=== PATIENT | male | born 1945 | race Hispanic/Latino ===

== ENCOUNTER 2023-10-11 08:21 | Day surgery (SDC) | payer MEDICARE ==
[2023-10-11] VITALS (16 sets, daily range): BP systolic 145–175; BP diastolic 83–95; PULSE 16–58; RESP 12–19
[~2023-10-11 08:21] MED LIST: AEC81 PO; LISI10TA24 PO; PREG150C47 PO; ROSU5TAB12 PO
[2023-10-11] MEDS: 0.9%NACL 1000ML 1,000 ML IV ONE (09:20)
[2023-10-11] MEDS ORDERED: FENTANYL CITRATE PF 50 MCG/1 ML 2ML VIAL ONE (13:03)
[2023-10-11] MEDS ORDERED: PROPOFOL 10 MG/ML 20ML VIAL IV ONE (13:03)
[2023-10-11] MEDS: INDOMETHACIN 100 MG SUPP.RECT RC ONE (13:15)
== END 2023-10-11 16:25 | disposition home or self-care (01) ==
LOC: ENDO 08:21 → DAH 08:21 → ENDO 16:25
PROVIDERS: ATTEND Internal Medicine Gastroenterology
DX: Z46.59 Encounter for fitting and adjustment of other gastrointestinal appliance and device (principal); K80.51 Calculus of bile duct without cholangitis or cholecystitis with obstruction; I10 Essential (primary) hypertension; K59.00 Constipation, unspecified; E78.2 Mixed hyperlipidemia; Z79.899 Other long term (current) drug therapy; Z79.01 Long term (current) use of anticoagulants; Z90.49 Acquired absence of other specified parts of digestive tract; Z79.82 Long term (current) use of aspirin
CPT/HCPCS: 43265; 74328; 43275; 43273; J3010; J7030 ×2; J2704; A4620; A4215; A4223; A4657; A7002; A4222; A4221; A4663; A4606; C1769; C1773; 43277; 74330; J3490